=== PATIENT | male | born 1965 | race Caucasian/White ===

== ENCOUNTER 2020-10-10 17:14 | Emergency (ER) | payer MEDICARE | END 2020-10-10 17:30 | disposition left against medical advice (07) | LOC: EMS 17:23 | DX: I95.9 Hypotension, unspecified (principal); Z53.21 Procedure and treatment not carried out due to patient leaving prior to being seen by health care provider ==

== ENCOUNTER 2020-12-25 23:41 | Emergency (ER) | payer MEDICARE ==
[~2020-12-25] VITALS: Ht 188 cm; Wt 109.1 kg
[2020-12-26 00:20] VITALS: BP 120/74
[2020-12-26] MEDS ORDERED: LEVE500T20 PO (00:28)
== END 2020-12-26 01:00 | disposition left against medical advice (07) ==
LOC: EMS 23:42
DX: R10.9 Unspecified abdominal pain (principal); Z53.21 Procedure and treatment not carried out due to patient leaving prior to being seen by health care provider

== ENCOUNTER 2021-05-17 12:57 | Emergency (ER) | payer MEDICARE ==
[~2021-05-17] VITALS: Ht 188 cm; Wt 113.6 kg
[~2021-05-17 12:57] MED LIST: LEVE500T20 PO
[2021-05-17 13:01] VITALS: BP 160/97
== END 2021-05-17 14:15 | disposition home or self-care (01) ==
LOC: EMS 12:59
DX: L08.89 Other specified local infections of the skin and subcutaneous tissue (principal); B96.89 Other specified bacterial agents as the cause of diseases classified elsewhere; L30.4 Erythema intertrigo; I10 Essential (primary) hypertension; F12.90 Cannabis use, unspecified, uncomplicated
CPT/HCPCS: 99283